=== PATIENT | female | born 2000 | race Caucasian/White ===

== ENCOUNTER 2021-03-09 19:11 | Emergency (ER) | payer OTHER ==
[~2021-03-09] VITALS: Ht 177.8 cm; Wt 78.0 kg
[~2021-03-09 19:11] MED LIST: CEPHALEXIN 500500 M3 PO; PENICILLIN V P500 MG PO; TRIAMCINOLONE A80 G2 TOP
[2021-03-09 20:16] VITALS: BP 114/66
== END 2021-03-09 20:16 | disposition home or self-care (01) ==
LOC: M.ERS 19:11
DX: R59.0 Localized enlarged lymph nodes (principal); Z20.822 Contact with and (suspected) exposure to COVID-19; J02.9 Acute pharyngitis, unspecified; R68.83 Chills (without fever)